=== PATIENT | female | born 1965 | race Caucasian/White ===

== ENCOUNTER 2017-11-24 07:30 | Outpatient (CLI) | payer OTHER ==
[~2017-11-24 07:30] MED LIST: ATORVASTATIN CA20 MG PO; LEVO-T75 MCG PO
== END 2017-11-24 07:39 | disposition home or self-care (01) ==
LOC: TOM 07:30
DX: K57.30 Diverticulosis of large intestine without perforation or abscess without bleeding (principal); D12.5 Benign neoplasm of sigmoid colon